=== PATIENT | female | born 1960 | race Caucasian/White ===

== ENCOUNTER 2022-05-08 12:33 | Emergency (ER) | payer OTHER, BC ==
[2022-05-08] MEDS ORDERED: Sodium Chloride 0.9% 10 ML Syringe FLUSH PRN (13:05)
[2022-05-08] MEDS ORDERED: Thiamine 200 MG/2 ML MDV IVPUSH STA (13:05)
[2022-05-08] MEDS ORDERED: Sodium Chloride 0.9% 1,000 ML IV SCH (13:15)
[2022-05-08 13:34] LABS: ESTIMATED GFR 98 mL/min (>60)
== END 2022-05-08 15:30 | disposition home or self-care (01) ==
LOC: FB.ED 12:33
DX: F10.920 Alcohol use, unspecified with intoxication, uncomplicated (principal)
CPT/HCPCS: 36415; 80053; 80307; 82150; 83690; 85025; 96361; 96374; 99284-25; J3411; J7030